=== PATIENT | male | born 2000 | race Caucasian/White ===

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

== ENCOUNTER 2022-12-22 20:23 | Emergency (ER) | payer OTHER, SELFPAY ==
[2022-12-22 20:24] VITALS: BP 160/91; PULSE 101; RESP 16; TEMP 36.6; O2SAT 100; BMI 30.2
--- NOTE | 2022-12-22 20:37 | CT_ITS ---
STUDY: CT ABDOMEN AND PELVIS WITH CONTRAST REASON FOR EXAM: Male, 22 years old. RLQ pain RADIATION DOSAGE (If Supplied By Facility): CTDIvol = ( 10.20 ) mGy, DLP = ( 621.07 ) mGycm TECHNIQUE: Transaxial images were obtained from the dome of the diaphragm to the symphysis pubis without oral contrast. IV 100mL Isovue-300 was administered. Sagittal and coronal images were reconstructed. Individualized dose optimization techniques were used for this CT. COMPARISON: None. FINDINGS: The visualized lung bases are unremarkable. The visualized portions of the heart are within normal limits. Normal liver. Normal gallbladder and extrahepatic biliary system. Normal spleen. Normal pancreas. Normal bilateral adrenal glands. Normal right kidney. Normal left kidney. Normal visualized stomach. Normal small intestine. Normal colon. The appendix is visualized and appears normal. Normal abdominal aorta. Normal inferior vena cava. Normal retroperitoneum. Normal urinary bladder. Normal abdominal wall. Normal osseous structures. CT/Abdomen/Pelvis W IV Cont ONLY IMPRESSION: Normal enhanced CT of the abdomen and pelvis. Electronically Signed: Ramone Acosta MD at 21:20 EDT ,
--- NOTE | 2022-12-22 20:38 | ED.VIS.GI ---
HPI HPI - GI History of Present Illness Chief Complaint: Abd Pain Narrative Narrative: 22-year-old male presents with his mother because of abdominal pain that started this weekend, few days ago. He denies significant past medical history but states he started having periumbilical abdominal pain a few days ago. It worsened today. At first he states that it started going to the left side of his abdomen, and then earlier today, spread to the right as well. He denies any fevers or chills. No nausea or vomiting. No diarrhea. No previous intra-abdominal surgeries. He denies any exacerbating or alleviating factors to his pain except maybe lying on his stomach does not feel good. His last normal bowel movement was earlier today. He denies any dysuria or hematuria, no other symptoms. His mother states that on the car ride, he did not want to buckle his seatbelt because of his abdominal pain. PFSH PFSH Allergy/AdvReac Type Severity Reaction Status Date / Time No Known Allergies Allergy Verified 12/22/22 20:26 Social History Smoking Status: Never smoker ROS ROS ED ROS Narrative Constitutional: No fever, no chills. HEENT: No sore throat. No neck pain. No loss of vision. No rhinorrhea. Cardiovascular: No chest pain. No palpitations. No pedal edema. Respiratory: No cough, no shortness of breath. Abdominal: Bilateral lower quadrant abdominal pain. No nausea. No vomiting. No problems with bowel movements. No diarrhea. Genitourinary: No dysuria. No hematuria. Musculoskeletal: No myalgias. No arthralgias. Neurologic: No headaches. No dizziness. No lightheadedness. Skin: No rash. No change in color. Psychiatric: No depression. No anxiety. EXAM Physical Exam Narrative Exam Narrative: Afebrile. Vital signs noted. HEENT: Normocephalic. Atraumatic. PERRL, EOMI. Neck soft and supple. No point tenderness or step off. Cardiovascular: Regular rate and rhythm. No murmurs, rubs, or gallops appreciated. Respiratory: No tachypnea. Lungs clear to auscultation bilaterally. Gastrointestinal: Abdomen soft, mild tenderness to palpation bilateral lower quadrants, right greater than left. With normoactive bowel sounds. No rebound or guarding. Negative heel strike. No peritoneal signs. Neurological: Awake. Alert. Nonfocal, nonlateralizing. Skin: No rash. Normal color. No pallor. Musculoskeletal: No pedal edema. Full range of motion extremities. Const Vital Signs: 12/22/22 20:24 Temperature 97.8 F Temperature Source Temporal Pulse Rate 101 H Respiratory Rate 16 Blood Pressure 160/91 H Blood Pressure Mean 114 Pulse Ox 100 Oxygen Delivery Method Room Air MDM MDM MDM Narrative Medical decision making narrative: In the differential diagnosis is appendicitis versus ureterolithiasis versus nonspecific abdominal pain, versus abdominal wall strain. Patient denies any trauma. Given his right lower quadrant pain, he will be bolused normal saline [address] imaging with IV contrast obtained. I will also obtain basic laboratory work including CBC and CMP. I do not feel he needs a lipase because he has not had nausea or vomiting and has no tenderness in the epigastrium. Urinalysis will also be obtained. I reviewed the patient's laboratory work, he has a normal white count of 10.8, hemoglobin normal at 15.6, hematocrit 45.9. Electrolyte panel is grossly unremarkable with normal sodium of 142, potassium 3.9, BUN normal at 13 with creatinine normal at 0.87. Glucose appropriately elevated at 103 with a normal anion gap of 7. Although his urine is cloudy, it is negative for WBCs. I do not feel antibiotics are indicated. I reviewed the CT imaging, then reviewed the radiology report, which shows no acute process. The appendix was visualized and is not inflamed. At this point in time, I am unsure as to the cause of his nonspecific abdominal pain. I did offer him Toradol here prior to discharge, but he declined. I do not feel that he requires observation. He will follow-up with her primary care provider soon as possible. Right now he is in between physicians because he has not seen his rag sorter and cutter in a few years. Return instructions to the emergency department were reviewed. Disposition is discharged home in stable condition. Patient and mother are comfortable with the plan. History & Record Review Discussion w/independent historian: Patient and Family Additional record(s) reviewed:: No prior records Lab Data Attestation: I reviewed the patient's lab results. Labs: Laboratory Results - last 24 hr 12/22/22 12/22/22 12/22/22 20:57 20:58 20:58 WBC 10.8 RBC 5.28 Hgb 15.6 Hct 45.9 MCV 86.9 MCH 29.5 MCHC 34.0 RDW Std Deviation 38.4 RDW Coeff of Kristi 12.0 Plt Count 259 MPV 9.7 Immature Gran % (Auto) 0.300 Neut % (Auto) 62.9 Lymph % (Auto) 27.1 [place] % (Auto) 7.7 Eos % (Auto) 1.4 Baso % (Auto) 0.6 Absolute Neuts (auto) 6.8 Absolute Lymphs (auto) 2.93 Nucleated RBC % 0 Sodium 142 Potassium 3.9 Chloride 106 Carbon Dioxide 29.0 Anion Gap 7 BUN 13 Creatinine 0.87 Estim Creat Clear Calc 139.85 Est GFR (MDRD) Af Amer 144 Est GFR (MDRD) Non-Af 119 BUN/Creatinine Ratio 15.0 Glucose 103 Calcium 9.5 Total Bilirubin 0.40 AST 22 ALT 43 Alkaline Phosphatase 66 Total Protein 7.7 Albumin 4.3 Globulin 3.4 Albumin/Globulin Ratio 1.3 Urine Color Yellow Urine Clarity Cloudy Urine pH 7.0 Ur Specific [place] 1.010 Urine Protein Negative Urine Glucose (UA) Normal Urine Ketones Negative Urine Occult Blood Negative Urine Nitrite Negative Urine Bilirubin Negative Urine Urobilinogen 1 H Ur Leukocyte Esterase Negative Urine RBC 0 SEEN Urine WBC 0 SEEN Ur Squamous Epith Cells 0 SEEN Amorphous Sediment 2+ Urine Bacteria 0 SEEN Urine Mucus 0 SEEN Radiography Diagnostic Testing: Clinical Impression(s) from Imaging Studies Abdomen/Pelvis CT 12/22/22 20:37 IMPRESSION: Normal enhanced CT of the abdomen and pelvis. Electronically Signed: Ramone Acosta MD at 21:20 EDT , Discharge Plan Triage Chief Complaint: Abd Pain ED Provider: Nikita Lomax Dx/Rx/DC Orders Clinical Impression: Abdominal pain Instructions: ED Abdominal Pain Unkn Cause Male... Primary Care Provider: Frank Carrillo Referrals: Frank Carrillo MD [Primary Care Provider] - As soon as possible Activity Restrictions/Additional Instructions: Follow-up with a primary care provider soon as possible. Return with increased pain, new or worsening symptoms. Disposition Disposition: Home, Self Care
[2022-12-22] MEDS: 0.9% Normal Saline 1,000 ML 1000 ML IV (20:55)
[2022-12-22 21:05] LABS: Bacteria 0 SEEN /hpf (None Seen); Mucous, Urine 0 SEEN /hpf (<or=2+); Red Blood Cells-Urine 0 SEEN /hpf (0-5); Squamous Epithelial Cells - UA 0 SEEN /hpf (0-5); White Blood Cells 0 SEEN /hpf (0-5)
[2022-12-22 21:07] LABS: Absolute Lymphocyte Count 2.93 X10^3/uL (0.83-4.51); Absolute Neutrophil Count 6.8 X10^3/uL (2.0-7.7); Basophil# 0.06 X10^3/uL; Basophil% 0.6 % (0-1); Eosinophil# 0.15 X10^3/uL; Eosinophils% 1.4 % (0-5); Hematocrit 45.9 % (40-54); Hemoglobin 15.6 g/dL (13.0-16.5); Lymphocyte # 2.93 X10^3/ul (0.83-4.51); Lymphocyte % 27.1 % (19-41); Mean Corpuscular Hgb 29.5 pg (27.0-32.0); Mean Corpuscular Volume 86.9 fL (80-94); Mean Platelet Vol. 9.7 fl (6.2-12.0); Monocyte# 0.83 X10^3/uL; Monocyte% 7.7 % (0-10); NRBC Flagged by Analyzer 0 % (0-5); Neutrophil # 6.83 X10^3/uL (2.7-7.7); Neutrophil % 62.9 % (47-70); Platelet Count 259 K/mm3 (150-450); RBC Distribution Width SD 38.4 fl (35.1-43.9); Red Blood Count 5.28 M/mm3 (4.6-6.2); White Blood Count 10.8 K/mm3 (4.4-11.0)
[2022-12-22 21:09] LABS: Color, Urine Yellow (Yellow); Glucose, Dipstick Normal (Normal); Ketone-Dipstick Negative (Negative); Leukocyte Esterase-Dipstick Negative /ul (Negative); Nitrite-Dipstick Negative (Negative); Occult Blood-Urine Negative /ul (Negative); Protein-Dipstick Negative (Negative); Urine Bilirubin Dipstick Negative (Negative); Urine Clarity Cloudy (Clear); Urine Urobilinogen 1 mg/dl (Normal)
[2022-12-22 21:23] LABS: ALB/GLOB Ratio 1.3 RATIO (0.9-2.4); AST(SGOT) 22 U/L (15-37); Alanine Aminotransfer ALT/SGPT 43 U/L (16-61); Albumin, Serum 4.3 g/dL (3.2-5.0); Alkaline Phosphatase 66 U/L (45-117); Anion Gap 7 (5-15); BUN 13 mg/dL (7-18); Calcium,Total 9.5 mg/dL (8.5-10.1); Chloride 106 mmol/L (98-107); Creatinine, Serum 0.87 mg/dL (0.70-1.30); EST Glomerular Filtration Rate 119 mL/min (>60); Est Glom Filt Rate - Afr Amer 144 mL/min (>60); Estimated Creatinine Clearance 139.85 ml/min; Globulin 3.4 g/dL (2.2-4.2); Glucose 103 mg/dL (74-106); Potassium 3.9 mmol/L (3.5-5.1); Protein, Total 7.7 g/dL (6.4-8.2); Sodium Level 142 mmol/L (136-145)
[2022-12-22 21:30] LABS: Amorphous Sediment 2+
== END 2022-12-22 22:08 | disposition home or self-care (01) ==
PROVIDERS: Emergency Provider Emergency Medicine; PCP Pediatrics; Visit Provider Emergency Medicine
DX: R10.9 Unspecified abdominal pain (principal)
CPT/HCPCS: 74177; 80053; 81001; 85025; 96360; 99283; J7030; Q9967; A4216